=== PATIENT | male | born 1985 | race Caucasian/White ===

== ENCOUNTER 2021-08-20 20:48 | Emergency (ER) | payer OTHER ==
[~2021-08-20] VITALS: Ht 185.4 cm; Wt 99.5 kg
[~2021-08-20 20:48] MED LIST: NAPR-56 PO
[2021-08-20 21:15] VITALS: BP 121/70
[2021-08-21] MEDS ORDERED: ONDA4TAB6 PO (01:56)
[2021-08-21] MEDS ORDERED: SULF1TAB49 PO (01:56)
[2021-08-21] MEDS ORDERED: HYDR-3972 PO (01:56)
[2021-08-21] MEDS ORDERED: CEPH-585 PO (01:56)
== END 2021-08-20 22:43 | disposition home or self-care (01) ==
LOC: ER 20:49
DX: M25.522 Pain in left elbow (principal); Z53.21 Procedure and treatment not carried out due to patient leaving prior to being seen by health care provider

== ENCOUNTER 2021-08-20 22:47 | Emergency (ER) | payer OTHER ==
[~2021-08-20] VITALS: Ht 185.4 cm; Wt 100.0 kg
[2021-08-21] MEDS ORDERED: normal saline 1000ML IV soln IV ONE
[2021-08-21] MEDS ORDERED: ondansetron/PF 4mg/2ml inj IV ONE
[2021-08-21] MEDS ORDERED: morphine 4 MG/ML inj SYRINge IV ONE
[2021-08-21] MEDS ORDERED: CefTRIAXone 2gm/D5W 50ml BAG 50 ML IV ONE
[2021-08-21] MEDS ORDERED: vancomycin/NS 1 GM ADD-VANTAGE 250 ML IV ONE
[2021-08-21] MEDS ORDERED: iohexol 300mg/ml 100ml inj. ONE (00:04)
[2021-08-21 00:28] LABS: EOSINOPHILS # (AUTO) 0.2 X10'3 (0-0.9); HEMOGLOBIN 14.2 g/dl (14.0-17.9); RED CELL DISTRIBUTION WIDTH 13.7 % (11.5-14.5)
[2021-08-21 00:29] LABS: BASOPHILS # (AUTO) 0.1 X10'3 (0-0.2); BASOPHILS % (AUTO) 0.4 % (0-1); EOSINOPHILS % (AUTO) 1.7 % (0-6); HEMATOCRIT 42.2 % (42.0-52.0); LYMPHOCYTES # (AUTO) 2.3 X10'3 (1.1-4.8); LYMPHOCYTES % (AUTO) 16.6 % (21-51); MEAN CORPUSCULAR HEMOGLOBIN 29.4 PG (27.0-31.0); MEAN CORPUSCULAR HGB CONC 33.7 g/dL (33.0-36.5); MEAN CORPUSCULAR VOLUME 87.1 FL (78-98); MONOCYTES # (AUTO) 1.4 X10'3 (0-0.9); MONOCYTES % (AUTO) 9.8 % (2-12); NEUTROPHILS # (AUTO) 9.9 X10'3 (1.8-7.7); NEUTROPHILS % (AUTO) 71.5 % (42-75); PLATELET COUNT 349 X10'3 (140-440); RED BLOOD COUNT 4.84 X10'6 (4.70-6.10); WHITE BLOOD COUNT 13.9 X10'3 (4.5-11.0)
[2021-08-21 00:41] LABS: ALANINE AMINOTRANSFERASE 38 U/L (12-78); ALBUMIN 3.5 G/DL (3.4-5.0); ALBUMIN/GLOBULIN RATIO 0.9 (1.1-1.5); ALKALINE PHOSPHATASE 67 IU/L (46-116); ANION GAP 9 (8-16); ASPARTATE AMINO TRANSFERASE 17 U/L (10-37); BILIRUBIN,TOTAL 0.3 MG/DL (0.1-1.0); BLOOD UREA NITROGEN 16 MG/DL (7-18); BUN/CREATININE RATIO 15.1 (5.4-32.0); C-REACTIVE PROTEIN 6.33 MG/DL (0.0-0.5); CALCIUM 8.8 MG/DL (8.5-10.1); CHLORIDE 104 MMOL/L (99-107); CREATININE 1.06 MG/DL (0.60-1.10); GLUCOSE 120 MG/DL (70-104); MAGNESIUM 2.2 MG/DL (1.5-2.4); POTASSIUM 3.9 MMOL/L (3.5-5.1); SODIUM 143 MMOL/L (135-145); TOTAL CARBON DIOXIDE 29.6 MMOL/L (24-32); TOTAL PROTEIN 7.4 G/DL (6.4-8.2); eGFR 79 ML/MIN
[2021-08-21 00:59] LABS: ETHANOL < 0.010 GM/DL (0.0-0.010)
[2021-08-21 01:40] VITALS: BP 109/70
[2021-08-21] MEDS ORDERED: SULF1TAB49 PO (01:56)
[2021-08-21] MEDS ORDERED: HYDR-3972 PO (01:56)
[2021-08-21] MEDS ORDERED: CEPH-585 PO (01:56)
[2021-08-21] MEDS ORDERED: ONDA4TAB6 PO (01:56)
== END 2021-08-21 03:45 | disposition left against medical advice (07) ==
LOC: ER 22:48
DX: L03.114 Cellulitis of left upper limb (principal); L02.414 Cutaneous abscess of left upper limb; M25.522 Pain in left elbow; G89.29 Other chronic pain; J45.909 Unspecified asthma, uncomplicated; F12.90 Cannabis use, unspecified, uncomplicated; Z72.89 Other problems related to lifestyle; Z79.2 Long term (current) use of antibiotics; Z79.899 Other long term (current) drug therapy
CPT/HCPCS: 36415; 73201; 80053; 80320; 83605; 83735; 84145; 85025; 85651; 86140; 87040; 96365; 96367; 96375; 99285; J0696; J2270; J2405; J3370; J7030; Q9967